=== PATIENT | male | born 1965 | race Caucasian/White ===

== ENCOUNTER 2023-04-18 17:22 | Inpatient (IN) ==
[2023-04-18] MEDS ORDERED: ONDANSETRON 4 MG/2 ML VIAL IV ONE (17:44)
[2023-04-18] MEDS ORDERED: 0.9 % SODIUM CHLORIDE 1,000 ML IV ONE ×2 (17:44→19:54)
[2023-04-18] MEDS ORDERED: morphine 2 MG/ML VIAL IV ONE (17:45)
[2023-04-18 17:56] LABS: POC Calcium, Ionized 1.14 (1.16-1.32); POC Creatinine 0.7 (0.6-1.2); POC Potassium 3.7 (3.3-5.1)
[2023-04-18] MEDS ORDERED: HYDROmorphone 0.5 MG/0.5 ML SYRINGE IV ONE ×3 (18:38→19:54)
[2023-04-18 18:39] LABS: ALT/SGPT 19 U/L (<40); AST/SGOT 19 U/L (<40); Albumin 4.3 gm/dL (3.2-5.2); Albumin/Globulin Ratio 1.3 (1.0-2.3); Alkaline Phosphatase 102 U/L (39-117); Bilirubin,Total 1.3 mg/dL (0.1-1.0); Blood Urea Nitrogen 9 mg/dL (6-20); Calcium 9.6 mg/dL (8.6-10.4); Carbon Dioxide 26 mmol/L (22-30); Chloride 96 mmol/L (96-108); Globulin 3.2 gm/dL (2.2-3.7); Glomerular Filtration Rate 104; Glucose 139 mg/dL (70-105)
[2023-04-18 18:40] LABS: Bilirubin,Direct 0.3 mg/dL (<0.3)
[2023-04-18 18:46] LABS: Basophils # (Auto) 0.03 K/mcL (0.00-0.30); Basophils % (Auto) 0.2 % (0.0-2.0); Eosinophils # (Auto) 0 K/mcL (0.00-0.70); Eosinophils % (Auto) 0 % (0.0-7.0); Hematocrit 43.8 % (40.1-51.0); Lymphocytes # (Auto) 0.71 K/mcL (1.50-4.80); Lymphocytes % (Auto) 4.2 % (15.5-49.0); Mean Cell Volume 96.3 fL (80.0-100.0); Mean Corpuscular HGB Conc 34.2 g/dL (31.0-36.0); Mean Platelet Volume 10.1 fL (8.8-12.5); Monocytes # (Auto) 1.43 K/mcL (0.10-0.90); Monocytes % (Auto) 8.4 % (1.0-12.0); Neutrophils % (Auto) 86.3 % (38.0-78.0); Platelet Count 155 K/mcL (140-440); RBC 4.55 M/mcL (4.63-6.08); Red Cell Distribution Width 12.1 % (11.5-14.5)
[2023-04-18] MEDS ORDERED: PIPERACILLIN SODIUM/TAZOBACTAM 4.5 GM in DEXTROSE 5% IN WATER 50 ML IV ONE (19:48)
[2023-04-18] MEDS ORDERED: ONDANSETRON 4 MG/2 ML VIAL IV PRN (21:58)
[2023-04-18] MEDS ORDERED: PIPERACILLIN SODIUM/TAZOBACTAM 3.375 GM in DEXTROSE 5% IN WATER 50 ML IV SCH (22:00)
[2023-04-18 22:27] LABS: Prothrombin Time 13.2 sec (11.9-14.5)
[2023-04-18 22:35] LABS: Appearance,Urine CLEAR (Clear); Bilirubin,Urine Negative (Negative); Color,Urine YELLOW; Culture Indicated,Urine No; Glucose,Urine (UA) 50 mg/dL (Negative); Ketones,Urine 20 mg/dL (Negative); Leukocyte Esterase,Urine Negative /uL (Negative); Mucus,Urine FEW /hpf; Nitrate,Urine Negative (Negative); Protein,Urine Negative (Negative); Specific Gravity,Urine 1.013 (1.000-1.035); Urine Blood Negative (Negative); Urine RBC 0 /hpf (0-3); Urine Squamous Epithelial Cell 0 /hpf (0-4); Urine WBC 0 /hpf (0-4); Urobilinogen,Urine Negative
[2023-04-18] MEDS: ACETAMINOPHEN 1,000 MG/100 ML BAG IV SCH (23:00)
[2023-04-18] MEDS: HYDROmorphone 1 MG/ML SYRINGE IV PRN (23:00)
[2023-04-18] MEDS: 0.9 % SODIUM CHLORIDE 1,000 ML IV SCH (23:01)
[2023-04-19] MEDS: PIPERACILLIN SODIUM/TAZOBACTAM 3.375 GM in DEXTROSE 5% IN WATER 100 ML IV SCH ×4 (01:02→22:56)
[2023-04-19] MEDS: HYDROmorphone 1 MG/ML SYRINGE IV PRN ×4 (01:26→08:16)
[2023-04-19] MEDS: ACETAMINOPHEN 1,000 MG/100 ML BAG IV SCH ×4 (03:14→21:32)
[2023-04-19] MEDS: 0.9 % SODIUM CHLORIDE 1,000 ML IV SCH ×4 (05:29→23:13)
[2023-04-19 06:34] LABS: ALT/SGPT 75 U/L (<40); AST/SGOT 136 U/L (<40); Albumin 3.7 gm/dL (3.2-5.2); Albumin/Globulin Ratio 1.3 (1.0-2.3); Alkaline Phosphatase 181 U/L (39-117); Bilirubin,Total 3.2 mg/dL (0.1-1.0); Blood Urea Nitrogen 6 mg/dL (6-20); Calcium 8.7 mg/dL (8.6-10.4); Carbon Dioxide 26 mmol/L (22-30); Chloride 97 mmol/L (96-108); Globulin 2.8 gm/dL (2.2-3.7); Glomerular Filtration Rate 111; Glucose 143 mg/dL (70-105); Lactate Dehydrogenase 298 U/L (135-225); Triglycerides 40 mg/dL (<150); Uric Acid 2.4 mg/dL (2.5-8.0)
[2023-04-19 06:43] LABS: Basophils # (Auto) 0.02 K/mcL (0.00-0.30); Basophils % (Auto) 0.1 % (0.0-2.0); Eosinophils # (Auto) 0 K/mcL (0.00-0.70); Eosinophils % (Auto) 0 % (0.0-7.0); Hemoglobin 14.9 g/dL (13.7-17.5); Lymphocytes # (Auto) 0.34 K/mcL (1.50-4.80); Lymphocytes % (Auto) 1.9 % (15.5-49.0); Mean Corpuscular HGB Conc 33.9 g/dL (31.0-36.0); Mean Platelet Volume 10.2 fL (8.8-12.5); Monocytes # (Auto) 2.68 K/mcL (0.10-0.90); Neutrophils % (Auto) 81.9 % (38.0-78.0); Platelet Count 166 K/mcL (140-440); RBC 4.49 M/mcL (4.63-6.08); Red Cell Distribution Width 12.2 % (11.5-14.5); WBC 17.9 K/mcL (4.5-11.0)
[2023-04-19] MEDS ORDERED: KETAMINE 50 MG/ML Syringe IV ONE (08:43)
[2023-04-19] MEDS ORDERED: fentaNYL 100 MCG/2 ML VIAL IV ONE (08:43)
[2023-04-19] MEDS ORDERED: MAGNESIUM SULFATE 2 GM/50 ML BAG IV ONE (08:44)
[2023-04-19] MEDS ORDERED: ONDANSETRON 4 MG/2 ML VIAL ONE (08:44)
[2023-04-19] MEDS ORDERED: PROPOFOL 200 MG/20 ML VIAL IV ONE (08:44)
[2023-04-19] MEDS ORDERED: ROCURONIUM 10 MG/ML ML IV ONE ×2 (08:44→10:19)
[2023-04-19] MEDS ORDERED: SUGAMMADEX SODIUM 200 MG/2 ML VIAL IV ONE (08:44)
[2023-04-19] MEDS ORDERED: DEXAMETHASONE 10 MG/ML VIAL ONE (08:44)
[2023-04-19] MEDS ORDERED: LIDOCAINE 2% PF 5 ML VIAL ONE (08:44)
[2023-04-19] MEDS ORDERED: IPRATROPIUM/ALBUTEROL 3 ML AMPUL.NEB NEB PRN ×2 (09:00→11:10)
[2023-04-19] MEDS ORDERED: SCOPOLAMINE 1 PATCH PATCH TOPICAL PRN (09:00)
[2023-04-19] MEDS ORDERED: IOVERSOL 20 ML VIAL IJ ONE (09:49)
[2023-04-19] MEDS ORDERED: HYDROmorphone 1 MG/ML SYRINGE ONE (10:13)
[2023-04-19] MEDS ORDERED: MEPERIDINE 25 MG/ML VIAL IV PRN (11:10)
[2023-04-19] MEDS ORDERED: LACTATED RINGERS 250 ML IV PRN (11:10)
[2023-04-19] MEDS ORDERED: METHOCARBAMOL 1,000 MG/10 ML VIAL IV PRN (11:10)
[2023-04-19] MEDS ORDERED: NALOXONE HCL 0.4 MG/ML VIAL IV PRN (11:10)
[2023-04-19] MEDS ORDERED: diphenhydrAMINE 50 MG/ML VIAL IV PRN (11:10)
[2023-04-19] MEDS ORDERED: KETOROLAC 30 MG/ML VIAL IV PRN (11:10)
[2023-04-19] MEDS ORDERED: PROMETHAZINE 25 MG/ML VIAL IV PRN (11:10)
[2023-04-19] MEDS ORDERED: ONDANSETRON 4 MG/2 ML VIAL IV PRN (11:10)
[2023-04-19] MEDS ORDERED: fentaNYL 100 MCG/2 ML VIAL IV PRN (11:10)
[2023-04-19] MEDS: amLODIPine 10 MG TABLET PO SCH ×2 (11:11→16:51)
[2023-04-19] MEDS ORDERED: LACTATED RINGERS 1,000 ML IV SCH (11:15)
[2023-04-19] MEDS ORDERED: CARBOXYMETHYLCELLULOSE SODIUM 1 EACH DROPER.GEL OP STA (12:49)
[2023-04-19] MEDS ORDERED: [UNRECOGNIZED DRUG - OTHER] OD ONE (13:49)
[2023-04-20] MEDS: 0.9 % SODIUM CHLORIDE 1,000 ML IV SCH ×4 (03:27→22:17)
[2023-04-20] MEDS: ACETAMINOPHEN 1,000 MG/100 ML BAG IV SCH ×4 (03:32→22:09)
[2023-04-20] MEDS: PIPERACILLIN SODIUM/TAZOBACTAM 3.375 GM in DEXTROSE 5% IN WATER 100 ML IV SCH ×3 (05:25→22:08)
[2023-04-20 07:23] LABS: Basophils # (Auto) 0.02 K/mcL (0.00-0.30); Basophils % (Auto) 0.1 % (0.0-2.0); Eosinophils # (Auto) 0 K/mcL (0.00-0.70); Eosinophils % (Auto) 0 % (0.0-7.0); Hematocrit 32.6 % (40.1-51.0); Hemoglobin 11.6 g/dL (13.7-17.5); Lymphocytes % (Auto) 2.8 % (15.5-49.0); Mean Cell Volume 100.6 fL (80.0-100.0); Mean Corpuscular HGB Conc 35.6 g/dL (31.0-36.0); Mean Platelet Volume 10.1 fL (8.8-12.5); Monocytes # (Auto) 1.53 K/mcL (0.10-0.90); Monocytes % (Auto) 10.6 % (1.0-12.0); Neutrophils % (Auto) 85.9 % (38.0-78.0); Platelet Count 166 K/mcL (140-440); RBC 3.24 M/mcL (4.63-6.08); Red Cell Distribution Width 12.3 % (11.5-14.5); WBC 14.4 K/mcL (4.5-11.0)
[2023-04-20 07:56] LABS: ALT/SGPT 47 U/L (<40); AST/SGOT 35 U/L (<40); Albumin 3.1 gm/dL (3.2-5.2); Albumin/Globulin Ratio 1.3 (1.0-2.3); Alkaline Phosphatase 100 U/L (39-117); Bilirubin,Direct 0.4 mg/dL (<0.3); Blood Urea Nitrogen 9 mg/dL (6-20); Calcium 8.7 mg/dL (8.6-10.4); Carbon Dioxide 26 mmol/L (22-30); Chloride 97 mmol/L (96-108); Globulin 2.4 gm/dL (2.2-3.7); Glomerular Filtration Rate 104; Glucose 124 mg/dL (70-105); Lactate Dehydrogenase 160 U/L (135-225); Phosphorous 2.4 mg/dL (2.5-4.5); Triglycerides 45 mg/dL (<150); Uric Acid 1.8 mg/dL (2.5-8.0)
[2023-04-20] MEDS: amLODIPine 10 MG TABLET PO SCH (08:31)
[2023-04-20] MEDS: levETIRAcetam 500 MG TABLET PO SCH (08:45)
[2023-04-20] MEDS ORDERED: FLUZONE QUAD QS2023-24/PF 60 MCG/0.5 ML SYRINGE IM ONE (10:00)
[2023-04-20] MEDS: SIMETHICONE 80 MG TAB.CHEW CHEWED PRN ×2 (17:36→22:08)
[2023-04-21] MEDS: 0.9 % SODIUM CHLORIDE 1,000 ML IV SCH ×2 (04:18→09:14)
[2023-04-21] MEDS: SIMETHICONE 80 MG TAB.CHEW CHEWED PRN ×2 (04:19→09:12)
[2023-04-21] MEDS: ACETAMINOPHEN 1,000 MG/100 ML BAG IV SCH ×2 (04:19→09:30)
[2023-04-21] MEDS: PIPERACILLIN SODIUM/TAZOBACTAM 3.375 GM in DEXTROSE 5% IN WATER 100 ML IV SCH (05:41)
[2023-04-21 06:27] LABS: Basophils # (Auto) 0.01 K/mcL (0.00-0.30); Basophils % (Auto) 0.1 % (0.0-2.0); Eosinophils # (Auto) 0.01 K/mcL (0.00-0.70); Eosinophils % (Auto) 0.1 % (0.0-7.0); Hematocrit 33.8 % (40.1-51.0); Lymphocytes # (Auto) 0.72 K/mcL (1.50-4.80); Lymphocytes % (Auto) 6.9 % (15.5-49.0); Mean Cell Volume 101.2 fL (80.0-100.0); Mean Corpuscular HGB Conc 35.5 g/dL (31.0-36.0); Mean Platelet Volume 9.6 fL (8.8-12.5); Monocytes # (Auto) 0.88 K/mcL (0.10-0.90); Monocytes % (Auto) 8.4 % (1.0-12.0); Platelet Count 197 K/mcL (140-440); RBC 3.34 M/mcL (4.63-6.08); Red Cell Distribution Width 12.1 % (11.5-14.5); WBC 10.5 K/mcL (4.5-11.0)
[2023-04-21 06:48] LABS: ALT/SGPT 32 U/L (<40); AST/SGOT 21 U/L (<40); Alkaline Phosphatase 91 U/L (39-117); Bilirubin,Direct 0.2 mg/dL (<0.3); Bilirubin,Total 0.7 mg/dL (0.1-1.0); Blood Urea Nitrogen 8 mg/dL (6-20); Calcium 8.5 mg/dL (8.6-10.4); Carbon Dioxide 28 mmol/L (22-30); Chloride 98 mmol/L (96-108); Globulin 2.9 gm/dL (2.2-3.7); Glomerular Filtration Rate 111; Glucose 99 mg/dL (70-105); Lactate Dehydrogenase 159 U/L (135-225); Phosphorous 1.6 mg/dL (2.5-4.5); Triglycerides 97 mg/dL (<150); Uric Acid 2.2 mg/dL (2.5-8.0)
[2023-04-21] MEDS ORDERED: POTASSIUM PHOSPHATE 40 MEQ in DEXTROSE 5% IN WATER 500 ML IV ONE (07:55)
[2023-04-21] MEDS: amLODIPine 10 MG TABLET PO SCH (09:11)
[2023-04-21] MEDS: levETIRAcetam 500 MG TABLET PO SCH (09:11)
== END 2023-04-21 14:45 | disposition home or self-care (01) | DRG 416 ==
LOC: ED 17:22 → INTOOBSV 22:02 → MEDSUR 22:02
PROVIDERS: ADMIT Family Medicine Adult Medicine; ATTEND Family Medicine Adult Medicine

== ENCOUNTER 2023-10-27 13:27 | Inpatient (IN) ==
[2023-10-27] MEDS ORDERED: IOPAMIDOL 100 ML BOTTLE IV ONE (13:28)
[2023-10-27] MEDS: morphine 4 MG/ML VIAL IV ONE (15:05)
[2023-10-27] MEDS: CEFEPIME 2 GM VIAL IV ONE (15:08)
[2023-10-27] MEDS: LACTATED RINGERS 1,000 ML IV ONE ×2 (15:08→17:45)
[2023-10-27 15:40] LABS: Basophils # (Auto) 0.01 K/mcL (0.00-0.30); Basophils % (Auto) 0.1 % (0.0-2.0); Eosinophils # (Auto) 0 K/mcL (0.00-0.70); Eosinophils % (Auto) 0 % (0.0-7.0); Hematocrit 40.9 % (40.1-51.0); Hemoglobin 14.2 g/dL (13.7-17.5); Lymphocytes # (Auto) 0.29 K/mcL (1.50-4.80); Lymphocytes % (Auto) 2.3 % (15.5-49.0); Mean Cell Volume 97.4 fL (80.0-100.0); Mean Corpuscular HGB Conc 34.7 g/dL (31.0-36.0); Mean Platelet Volume 10.7 fL (8.8-12.5); Monocytes # (Auto) 1.31 K/mcL (0.10-0.90); Monocytes % (Auto) 10.3 % (1.0-12.0); Neutrophils % (Auto) 86.4 % (38.0-78.0); Platelet Count 85 K/mcL (140-440); Red Cell Distribution Width 13.1 % (11.5-14.5); WBC 12.7 K/mcL (4.5-11.0)
[2023-10-27] MEDS: VANCOMYCIN 1,000 MG in 0.9 % SODIUM CHLORIDE 250 ML IV ONE (15:40)
[2023-10-27 15:51] LABS: Blood Urea Nitrogen 29 mg/dL (6-20); Calcium 8.4 mg/dL (8.6-10.4); Carbon Dioxide 25 mmol/L (22-30); Chloride 91 mmol/L (96-108); Glomerular Filtration Rate 47; Glucose 127 mg/dL (70-105)
[2023-10-27] MEDS ORDERED: morphine 4 MG/ML VIAL IV PRN (20:38)
[2023-10-27] MEDS ORDERED: SENNOSIDES 1 TABLET PO PRN (20:38)
[2023-10-27] MEDS ORDERED: LORazepam 2 MG/ML VIAL IV PRN (20:38)
[2023-10-27] MEDS ORDERED: ONDANSETRON 4 MG/2 ML VIAL IV PRN (20:38)
[2023-10-27] MEDS ORDERED: POTASSIUM CHLORIDE 40 MEQ in DEXTROSE 5% IN WATER 500 ML IV PRN (20:38)
[2023-10-27] MEDS ORDERED: POTASSIUM CHLORIDE 20 MEQ TABLET PO PRN ×2 (20:38)
[2023-10-27] MEDS ORDERED: MAGNESIUM SULFATE 2 GM/50 ML BAG IV PRN (20:38)
[2023-10-27] MEDS ORDERED: cloNIDine HCL 0.1 MG TABLET PO PRN (20:38)
[2023-10-27] MEDS ORDERED: ACETAMINOPHEN 325 MG TABLET PO PRN (20:38)
[2023-10-27] MEDS ORDERED: chlordiazePOXIDE 25 MG CAPSULE PO PRN (20:38)
[2023-10-27] MEDS ORDERED: VANCOMYCIN PER PHARMACY IV SCH (20:38)
[2023-10-27] MEDS ORDERED: POLYETHYLENE GLYCOL 3350 17 GM PACKET PO PRN (20:38)
[2023-10-27 21:15] LABS: Thyroid Stimulating Hormone 1.81 uIU/mL (0.27-5.01); Uric Acid 7.8 mg/dL (2.5-8.0)
[2023-10-27] MEDS: 0.9 % SODIUM CHLORIDE 1,000 ML IV SCH (21:17)
[2023-10-27] MEDS: THIAMINE 100 MG/ML VIAL ONE (21:20)
[2023-10-27] MEDS: MULTIVIT,THER IRON,CA,FA & MIN 1 TABLET PO SCH (21:20)
[2023-10-27] MEDS: diphenhydrAMINE 25 MG CAPSULE PO SCH (21:20)
[2023-10-27] MEDS: 0.9 % SODIUM CHLORIDE 10 ML SYRINGE IV SCH ×2 (21:20)
[2023-10-27] MEDS: DOCUSATE SODIUM 100 MG CAPSULE PO SCH (21:20)
[2023-10-27] MEDS: FOLIC ACID 1 MG TABLET PO SCH (21:20)
[2023-10-27] MEDS: cefTRIAXone 2 GM in DEXTROSE 5% IN WATER 50 ML IV SCH (21:21)
[2023-10-27] MEDS: cefTRIAXone 2 GM VIAL ONE (21:31)
[2023-10-27] MEDS: HYDROcodone/APAP 5/325MG TABLET PO PRN (21:51)
[2023-10-27] MEDS: THIAMINE 100 MG in 0.9 % SODIUM CHLORIDE 50 ML IV SCH (22:01)
[2023-10-27] MEDS: VANCOMYCIN 500 MG in 0.9 % SODIUM CHLORIDE 100 ML IV ONE (23:09)
[2023-10-28 06:53] LABS: Hematocrit 38.3 % (40.1-51.0); Hemoglobin 13.5 g/dL (13.7-17.5); Mean Corpuscular HGB Conc 35.2 g/dL (31.0-36.0); Mean Platelet Volume 10.5 fL (8.8-12.5); Platelet Count 116 K/mcL (140-440); RBC 3.91 M/mcL (4.63-6.08); Red Cell Distribution Width 13.2 % (11.5-14.5); WBC 14.1 K/mcL (4.5-11.0)
[2023-10-28 07:15] LABS: Band Neutrophils % 2 % (0-10); Eosinophils % (Manual) 2 % (0-7); Lymphocytes % 3 % (15-49); Monocytes % (Manual) 5 % (1-12); Platelet Estimate DECREASED (Normal); RBC Morphology NORMAL (Normal); Reactive Lymphocytes 2 % (0-2); Segmented Neutrophils % 86 % (38-78)
[2023-10-28 08:49] LABS: ALT/SGPT 2660 U/L (<40); AST/SGOT > 7000 U/L (0-40); Albumin 3.2 gm/dL (3.2-5.2); Albumin/Globulin Ratio 1.4 (1.0-2.3); Alkaline Phosphatase 447 U/L (39-117); Bilirubin,Direct 2.9 mg/dL (<0.3); Bilirubin,Total 3.4 mg/dL (0.1-1.0); Blood Urea Nitrogen 37 mg/dL (6-20); Calcium 8.1 mg/dL (8.6-10.4); Carbon Dioxide 22 mmol/L (22-30); Chloride 92 mmol/L (96-108); Globulin 2.3 gm/dL (2.2-3.7); Glomerular Filtration Rate 23; Glucose 93 mg/dL (70-105); Lactate Dehydrogenase 1310 U/L (135-225); Phosphorous 2.3 mg/dL (2.5-4.5); Triglycerides 102 mg/dL (<150); Uric Acid 8.6 mg/dL (2.5-8.0)
[2023-10-28] MEDS: ENOXAPARIN 40 MG/0.4 ML SYRINGE SQ SCH (09:21)
[2023-10-28] MEDS: 0.9 % SODIUM CHLORIDE 1,000 ML IV SCH (09:22)
[2023-10-28] MEDS: levETIRAcetam 500 MG TABLET PO SCH (09:22)
[2023-10-28] MEDS: amLODIPine 10 MG TABLET PO SCH (09:22)
[2023-10-28] MEDS: ATORVASTATIN 40 MG TABLET PO SCH (09:22)
[2023-10-28] MEDS: CLINDAMYCIN IN 0.9 % SOD CHLOR 600 MG/50 ML BAG IV SCH (09:23)
[2023-10-28] MEDS ORDERED: VANCOMYCIN 1,500 MG in 0.9 % SODIUM CHLORIDE 500 ML IV SCH (10:00)
[2023-10-28] MEDS: THIAMINE 100 MG/ML VIAL ONE (10:13)
[2023-10-28 10:36] LABS: Sodium, Urine Random 27 mmol/L
[2023-10-28 11:37] LABS: Osmolality,Urine 315 mOSM/kg (80-1000)
[2023-10-28 12:13] LABS: INR 1.5 (0.9-1.1); Prothrombin Time 18.7 sec (11.9-14.5)
[2023-10-28 16:33] LABS: Hepatitis A Antibody IgM Non-Reactive (Non-Reactive); Hepatitis B Surface Antigen Negative (Negative); Hepatitis C Virus Antibody Non-Reactive (Non-Reactive)
[2023-10-28] MEDS: MELATONIN 3 MG TABLET PO SCH (19:24)
[2023-10-28] MEDS: diphenhydrAMINE 25 MG CAPSULE PO PRN (20:31)
[2023-10-29 02:03] LABS: Amphetamine Screen,Urine None detected; Barbiturate Screen,Urine None detected; Benzodiazepines Screen,Urine None detected; Cannabinoid Screen,Urine None detected; Cocaine Screen,Urine None detected; Opiate Screen,Urine Suspect Positive; Oxycodone, Urine Screen None detected; Phencyclidine Screen,Urine None detected
[2023-10-29] MEDS: oxyCODONE IR 5 MG TABLET PO PRN (05:31)
[2023-10-29 06:45] LABS: Basophils # (Auto) 0.02 K/mcL (0.00-0.30); Basophils % (Auto) 0.1 % (0.0-2.0); Eosinophils # (Auto) 0.05 K/mcL (0.00-0.70); Eosinophils % (Auto) 0.3 % (0.0-7.0); Hematocrit 35.1 % (40.1-51.0); Hemoglobin 12.6 g/dL (13.7-17.5); Lymphocytes # (Auto) 0.41 K/mcL (1.50-4.80); Lymphocytes % (Auto) 2.5 % (15.5-49.0); Mean Cell Volume 96.4 fL (80.0-100.0); Mean Corpuscular HGB Conc 35.9 g/dL (31.0-36.0); Mean Platelet Volume 9.4 fL (8.8-12.5); Monocytes # (Auto) 1.71 K/mcL (0.10-0.90); Monocytes % (Auto) 10.5 % (1.0-12.0); Neutrophils % (Auto) 80.6 % (38.0-78.0); Platelet Count 145 K/mcL (140-440); RBC 3.64 M/mcL (4.63-6.08); Red Cell Distribution Width 13.6 % (11.5-14.5); WBC 16.3 K/mcL (4.5-11.0)
[2023-10-29] MEDS: methylPREDNISolone SOD SUCC 125 MG/2 ML VIAL IV ONE (07:42)
[2023-10-29 08:07] LABS: INR 1.2 (0.9-1.1); Prothrombin Time 16.1 sec (11.9-14.5)
[2023-10-29 08:10] LABS: ALT/SGPT 1584 U/L (<40); AST/SGOT 3330 U/L (<40); Albumin 2.9 gm/dL (3.2-5.2); Albumin/Globulin Ratio 1.2 (1.0-2.3); Alkaline Phosphatase 506 U/L (39-117); Bilirubin,Direct 1.6 mg/dL (<0.3); Bilirubin,Total 1.9 mg/dL (0.1-1.0); Blood Urea Nitrogen 48 mg/dL (6-20); Calcium 7.8 mg/dL (8.6-10.4); Carbon Dioxide 20 mmol/L (22-30); Chloride 90 mmol/L (96-108); Globulin 2.4 gm/dL (2.2-3.7); Glomerular Filtration Rate 13; Glucose 88 mg/dL (70-105); Lactate Dehydrogenase 520 U/L (135-225); Phosphorous 2.9 mg/dL (2.5-4.5); Triglycerides 148 mg/dL (<150); Uric Acid 10.1 mg/dL (2.5-8.0)
[2023-10-29] MEDS: THIAMINE 100 MG/ML VIAL ONE (09:14)
[2023-10-29] MEDS: BACLOFEN 10 MG TABLET PO SCH (09:15)
[2023-10-29] MEDS: 0.9 % SODIUM CHLORIDE 1,000 ML IV ONE (10:30)
[2023-10-29 12:52] LABS: Appearance,Urine CLOUDY (Clear); Bilirubin,Urine Negative (Negative); Color,Urine YELLOW; Culture Indicated,Urine Yes; Glucose,Urine (UA) Negative (Negative); Ketones,Urine 5 mg/dL (Negative); Leukocyte Esterase,Urine Negative /uL (Negative); Nitrate,Urine Negative (Negative); Protein,Urine 100 mg/dL (Negative); Specific Gravity,Urine 1.011 (1.000-1.035); Urine RBC 13 /hpf (0-3); Urine Squamous Epithelial Cell 1 /hpf (0-4); Urine WBC 10 /hpf (0-4); Urobilinogen,Urine Negative
[2023-10-29 13:02] LABS: Creatinine,Urine Random 36.1 mg/dL (39.0-259.0)
[2023-10-29] MEDS: PANTOPRAZOLE 40 MG VIAL IV SCH (17:15)
[2023-10-29] MEDS: metroNIDAZOLE 500 MG/100 ML BAG IV SCH (17:58)
[2023-10-29] MEDS: 0.9 % SODIUM CHLORIDE 1,000 ML IV SCH (20:55)
[2023-10-29] MEDS: IPRATROPIUM/ALBUTEROL 3 ML AMPUL.NEB NEB PRN (21:13)
[2023-10-29] MEDS: ALBUMIN HUMAN 12.5 GM/50 ML VIAL IV ONE (22:44)
[2023-10-29] MEDS: ALBUMIN HUMAN 50 ML IV ONE (23:02)
[2023-10-30] MEDS: LORazepam 2 MG/ML VIAL IV PRN (00:26)
[2023-10-30] MEDS: 0.9 % SODIUM CHLORIDE 1,000 ML IV SCH ×2 (03:55→09:16)
[2023-10-30] MEDS: ALBUMIN HUMAN 12.5 GM/50 ML VIAL IV ONE (05:13)
[2023-10-30] MEDS: ALBUMIN HUMAN 50 ML IV ONE (05:19)
[2023-10-30 06:22] LABS: Basophils # (Auto) 0.01 K/mcL (0.00-0.30); Basophils % (Auto) 0.1 % (0.0-2.0); Eosinophils # (Auto) 0 K/mcL (0.00-0.70); Eosinophils % (Auto) 0 % (0.0-7.0); Hematocrit 33.5 % (40.1-51.0); Hemoglobin 11.9 g/dL (13.7-17.5); Lymphocytes # (Auto) 0.39 K/mcL (1.50-4.80); Lymphocytes % (Auto) 2.5 % (15.5-49.0); Mean Cell Volume 93.8 fL (80.0-100.0); Mean Corpuscular HGB Conc 35.5 g/dL (31.0-36.0); Mean Platelet Volume 9.4 fL (8.8-12.5); Monocytes # (Auto) 1.11 K/mcL (0.10-0.90); Monocytes % (Auto) 7.1 % (1.0-12.0); Platelet Count 155 K/mcL (140-440); RBC 3.57 M/mcL (4.63-6.08); Red Cell Distribution Width 13.4 % (11.5-14.5); WBC 15.5 K/mcL (4.5-11.0)
[2023-10-30 07:58] LABS: ALT/SGPT 1110 U/L (<40); AST/SGOT 1280 U/L (<40); Albumin 3.1 gm/dL (3.2-5.2); Albumin/Globulin Ratio 1.2 (1.0-2.3); Alkaline Phosphatase 488 U/L (39-117); Bilirubin,Direct 0.8 mg/dL (<0.3); Bilirubin,Total 1.1 mg/dL (0.1-1.0); Blood Urea Nitrogen 54 mg/dL (6-20); Calcium 7.5 mg/dL (8.6-10.4); Carbon Dioxide 21 mmol/L (22-30); Chloride 89 mmol/L (96-108); Globulin 2.5 gm/dL (2.2-3.7); Glomerular Filtration Rate 10; Glucose 121 mg/dL (70-105); Lactate Dehydrogenase 453 U/L (135-225); Phosphorous 4.6 mg/dL (2.5-4.5); Triglycerides 98 mg/dL (<150); Uric Acid 10.8 mg/dL (2.5-8.0)
[2023-10-30] MEDS ORDERED: ENOXAPARIN 30 MG/0.3 ML SYRINGE SQ SCH (09:00)
[2023-10-30] MEDS: THIAMINE 100 MG TABLET PO SCH (09:09)
[2023-10-30] MEDS: SIMETHICONE 80 MG TAB.CHEW CHEWED SCH (09:19)
[2023-10-31 07:07] LABS: Basophils # (Auto) 0.02 K/mcL (0.00-0.30); Basophils % (Auto) 0.1 % (0.0-2.0); Eosinophils # (Auto) 0.04 K/mcL (0.00-0.70); Eosinophils % (Auto) 0.3 % (0.0-7.0); Hematocrit 37.4 % (40.1-51.0); Hemoglobin 13.5 g/dL (13.7-17.5); Lymphocytes # (Auto) 0.65 K/mcL (1.50-4.80); Lymphocytes % (Auto) 4.6 % (15.5-49.0); Mean Cell Volume 94.4 fL (80.0-100.0); Mean Corpuscular HGB Conc 36.1 g/dL (31.0-36.0); Mean Platelet Volume 9.4 fL (8.8-12.5); Monocytes % (Auto) 14.3 % (1.0-12.0); Neutrophils % (Auto) 79.4 % (38.0-78.0); Platelet Count 222 K/mcL (140-440); RBC 3.96 M/mcL (4.63-6.08); Red Cell Distribution Width 13.9 % (11.5-14.5)
[2023-10-31 07:23] LABS: C-Reactive Protein 9.13 mg/dL (0.03-0.80)
[2023-10-31 07:41] LABS: ALT/SGPT 817 U/L (<40); AST/SGOT 542 U/L (<40); Albumin 3.2 gm/dL (3.2-5.2); Albumin/Globulin Ratio 1.2 (1.0-2.3); Alkaline Phosphatase 462 U/L (39-117); Bilirubin,Direct 0.5 mg/dL (<0.3); Bilirubin,Total 0.7 mg/dL (0.1-1.0); Blood Urea Nitrogen 62 mg/dL (6-20); Calcium 8.1 mg/dL (8.6-10.4); Carbon Dioxide 20 mmol/L (22-30); Chloride 92 mmol/L (96-108); Globulin 2.6 gm/dL (2.2-3.7); Glomerular Filtration Rate 8; Glucose 84 mg/dL (70-105); Lactate Dehydrogenase 440 U/L (135-225); Phosphorous 5.5 mg/dL (2.5-4.5); Triglycerides 147 mg/dL (<150); Uric Acid 11.6 mg/dL (2.5-8.0)
[2023-10-31] MEDS: 0.9 % SODIUM CHLORIDE 1,000 ML IV SCH (09:45)
[2023-10-31] MEDS: SIMETHICONE 80 MG TAB.CHEW CHEWED SCH (09:45)
[2023-10-31 11:33] LABS: Appearance,Urine SL CLOUDY (Clear); Bilirubin,Urine NEGATIVE (Negative); Color,Urine LT. YELLOW; Culture Indicated,Urine No; Glucose,Urine (UA) NEGATIVE (Negative); Ketones,Urine NEGATIVE (Negative); Leukocyte Esterase,Urine NEGATIVE /uL (Negative); Mucus,Urine FEW /hpf; Nitrate,Urine NEGATIVE (Negative); Protein,Urine 30 mg/dL (Negative); Specific Gravity,Urine <= 1.005 (1.000-1.035); Urine Amorphous Crystals FEW /hpf; Urine Blood LARGE ery/mcL (Negative); Urine Granular Cast 1 /lph (0-0); Urine RBC 81 /hpf (0-3); Urine Squamous Epithelial Cell < 1 /hpf (0-4); Urine WBC 9 /hpf (0-4); Urobilinogen,Urine Normal
[2023-10-31 12:10] LABS: Uric Acid,Urine Random 15.5 mg/dL (37.0-92.0)
[2023-11-01 06:43] LABS: Basophils # (Auto) 0.02 K/mcL (0.00-0.30); Basophils % (Auto) 0.2 % (0.0-2.0); Eosinophils # (Auto) 0.18 K/mcL (0.00-0.70); Eosinophils % (Auto) 1.5 % (0.0-7.0); Hematocrit 38.3 % (40.1-51.0); Hemoglobin 13.9 g/dL (13.7-17.5); Lymphocytes # (Auto) 0.58 K/mcL (1.50-4.80); Lymphocytes % (Auto) 4.9 % (15.5-49.0); Mean Cell Volume 96.2 fL (80.0-100.0); Mean Corpuscular HGB Conc 36.3 g/dL (31.0-36.0); Mean Platelet Volume 9.1 fL (8.8-12.5); Monocytes # (Auto) 1.69 K/mcL (0.10-0.90); Monocytes % (Auto) 14.4 % (1.0-12.0); Neutrophils % (Auto) 76.6 % (38.0-78.0); Platelet Count 223 K/mcL (140-440); RBC 3.98 M/mcL (4.63-6.08); Red Cell Distribution Width 14.2 % (11.5-14.5); WBC 11.7 K/mcL (4.5-11.0)
[2023-11-01 07:45] LABS: ALT/SGPT 571 U/L (<40); AST/SGOT 240 U/L (<40); Albumin 2.9 gm/dL (3.2-5.2); Alkaline Phosphatase 398 U/L (39-117); Bilirubin,Direct 0.4 mg/dL (<0.3); Bilirubin,Total 0.6 mg/dL (0.1-1.0); Blood Urea Nitrogen 64 mg/dL (6-20); Calcium 7.8 mg/dL (8.6-10.4); Carbon Dioxide 17 mmol/L (22-30); Chloride 96 mmol/L (96-108); Globulin 2.8 gm/dL (2.2-3.7); Glomerular Filtration Rate 8; Glucose 100 mg/dL (70-105); Lactate Dehydrogenase 413 U/L (135-225); Phosphorous 5.9 mg/dL (2.5-4.5); Triglycerides 170 mg/dL (<150); Uric Acid 11.3 mg/dL (2.5-8.0)
[2023-11-01 12:05] LABS: Specimen Source WHOLE BLOOD
[2023-11-02 06:34] LABS: Basophils # (Auto) 0.01 K/mcL (0.00-0.30); Basophils % (Auto) 0.1 % (0.0-2.0); Eosinophils # (Auto) 0.21 K/mcL (0.00-0.70); Eosinophils % (Auto) 2.1 % (0.0-7.0); Hematocrit 38.8 % (40.1-51.0); Hemoglobin 14.2 g/dL (13.7-17.5); Lymphocytes # (Auto) 0.52 K/mcL (1.50-4.80); Lymphocytes % (Auto) 5.1 % (15.5-49.0); Mean Cell Volume 94.6 fL (80.0-100.0); Mean Corpuscular HGB Conc 36.6 g/dL (31.0-36.0); Mean Platelet Volume 9.3 fL (8.8-12.5); Monocytes # (Auto) 1.26 K/mcL (0.10-0.90); Monocytes % (Auto) 12.4 % (1.0-12.0); Neutrophils % (Auto) 76.2 % (38.0-78.0); Platelet Count 209 K/mcL (140-440); Red Cell Distribution Width 14.4 % (11.5-14.5); WBC 10.1 K/mcL (4.5-11.0)
[2023-11-02 07:04] LABS: ALT/SGPT 436 U/L (<40); AST/SGOT 154 U/L (<40); Albumin 2.9 gm/dL (3.2-5.2); Alkaline Phosphatase 333 U/L (39-117); Bilirubin,Total 0.6 mg/dL (0.1-1.0); Blood Urea Nitrogen 61 mg/dL (6-20); Calcium 7.9 mg/dL (8.6-10.4); Carbon Dioxide 16 mmol/L (22-30); Chloride 100 mmol/L (96-108); Globulin 2.8 gm/dL (2.2-3.7); Glomerular Filtration Rate 8; Glucose 101 mg/dL (70-105)
[2023-11-02] MEDS: CITRIC ACID/SODIUM CITRATE 15 ML ORAL.SOL PO SCH (12:43)
[2023-11-03 06:30] LABS: Basophils # (Auto) 0.02 K/mcL (0.00-0.30); Basophils % (Auto) 0.2 % (0.0-2.0); Eosinophils # (Auto) 0.27 K/mcL (0.00-0.70); Eosinophils % (Auto) 2.8 % (0.0-7.0); Hematocrit 36.7 % (40.1-51.0); Hemoglobin 13.1 g/dL (13.7-17.5); Lymphocytes # (Auto) 0.54 K/mcL (1.50-4.80); Lymphocytes % (Auto) 5.5 % (15.5-49.0); Mean Cell Volume 95.8 fL (80.0-100.0); Mean Corpuscular HGB Conc 35.7 g/dL (31.0-36.0); Mean Platelet Volume 9.6 fL (8.8-12.5); Monocytes # (Auto) 1.41 K/mcL (0.10-0.90); Monocytes % (Auto) 14.4 % (1.0-12.0); Neutrophils % (Auto) 72.4 % (38.0-78.0); Platelet Count 210 K/mcL (140-440); RBC 3.83 M/mcL (4.63-6.08); Red Cell Distribution Width 14.6 % (11.5-14.5); WBC 9.8 K/mcL (4.5-11.0)
[2023-11-03 06:56] LABS: ALT/SGPT 335 U/L (<40); AST/SGOT 105 U/L (<40); Albumin 2.8 gm/dL (3.2-5.2); Alkaline Phosphatase 268 U/L (39-117); Bilirubin,Total 0.5 mg/dL (0.1-1.0); Blood Urea Nitrogen 56 mg/dL (6-20); Calcium 7.9 mg/dL (8.6-10.4); Carbon Dioxide 17 mmol/L (22-30); Chloride 103 mmol/L (96-108); Globulin 2.8 gm/dL (2.2-3.7); Glomerular Filtration Rate 8; Glucose 103 mg/dL (70-105)
[2023-11-03] MEDS: POTASSIUM CHLORIDE 20 MEQ TABLET PO ONE (07:49)
[2023-11-03] MEDS: ALLOPURINOL 100 MG TABLET PO SCH (08:52)
[2023-11-03] MEDS: SIMETHICONE 80 MG TAB.CHEW CHEWED PRN (20:56)
[2023-11-04 02:08] LABS: Opiate Screen Positive ng/mL (Cutoff=300)
[2023-11-04 06:55] LABS: Basophils # (Auto) 0.03 K/mcL (0.00-0.30); Basophils % (Auto) 0.3 % (0.0-2.0); Eosinophils # (Auto) 0.32 K/mcL (0.00-0.70); Eosinophils % (Auto) 3.1 % (0.0-7.0); Hematocrit 37.3 % (40.1-51.0); Hemoglobin 13.3 g/dL (13.7-17.5); Lymphocytes % (Auto) 5.9 % (15.5-49.0); Mean Cell Volume 96.9 fL (80.0-100.0); Mean Corpuscular HGB Conc 35.7 g/dL (31.0-36.0); Mean Platelet Volume 9.6 fL (8.8-12.5); Monocytes # (Auto) 1.39 K/mcL (0.10-0.90); Monocytes % (Auto) 13.6 % (1.0-12.0); Neutrophils % (Auto) 73.6 % (38.0-78.0); Platelet Count 248 K/mcL (140-440); RBC 3.85 M/mcL (4.63-6.08); WBC 10.2 K/mcL (4.5-11.0)
[2023-11-04 07:20] LABS: Phosphorous 5.6 mg/dL (2.5-4.5)
[2023-11-04 07:36] LABS: ALT/SGPT 282 U/L (<40); AST/SGOT 70 U/L (<40); Albumin 2.9 gm/dL (3.2-5.2); Alkaline Phosphatase 238 U/L (39-117); Bilirubin,Total 0.6 mg/dL (0.1-1.0); Blood Urea Nitrogen 50 mg/dL (6-20); Calcium 8.1 mg/dL (8.6-10.4); Carbon Dioxide 17 mmol/L (22-30); Chloride 105 mmol/L (96-108); Glomerular Filtration Rate 8; Glucose 109 mg/dL (70-105)
[2023-11-04] MEDS: POLYETHYLENE GLYCOL 3350 17 GM PACKET PO SCH (09:12)
[2023-11-04] MEDS: POTASSIUM CHLORIDE 20 MEQ PACKET PO SCH (09:19)
[2023-11-05 06:07] LABS: C3, Serum 40 mg/dL (82-185); C4, Serum 4 mg/dL (15-53)
[2023-11-05 07:38] LABS: Basophils # (Auto) 0.05 K/mcL (0.00-0.30); Basophils % (Auto) 0.6 % (0.0-2.0); Eosinophils % (Auto) 3.3 % (0.0-7.0); Hematocrit 36.7 % (40.1-51.0); Hemoglobin 13.1 g/dL (13.7-17.5); Lymphocytes # (Auto) 0.57 K/mcL (1.50-4.80); Lymphocytes % (Auto) 6.3 % (15.5-49.0); Mean Cell Volume 99.5 fL (80.0-100.0); Mean Corpuscular HGB Conc 35.7 g/dL (31.0-36.0); Mean Platelet Volume 9.5 fL (8.8-12.5); Monocytes # (Auto) 1.19 K/mcL (0.10-0.90); Monocytes % (Auto) 13.1 % (1.0-12.0); Neutrophils % (Auto) 74.1 % (38.0-78.0); Platelet Count 261 K/mcL (140-440); RBC 3.69 M/mcL (4.63-6.08); Red Cell Distribution Width 15.1 % (11.5-14.5); WBC 9.1 K/mcL (4.5-11.0)
[2023-11-05 08:07] LABS: ALT/SGPT 233 U/L (<40); AST/SGOT 59 U/L (<40); Albumin 3.1 gm/dL (3.2-5.2); Albumin/Globulin Ratio 1.1 (1.0-2.3); Alkaline Phosphatase 205 U/L (39-117); Bilirubin,Total 0.6 mg/dL (0.1-1.0); Blood Urea Nitrogen 48 mg/dL (6-20); Calcium 8.2 mg/dL (8.6-10.4); Carbon Dioxide 19 mmol/L (22-30); Chloride 106 mmol/L (96-108); Globulin 2.8 gm/dL (2.2-3.7); Glomerular Filtration Rate 8; Glucose 106 mg/dL (70-105)
[2023-11-05] MEDS: cefTRIAXone 2 GM VIAL ONE (08:17)
[2023-11-05] MEDS: metroNIDAZOLE 500 MG TABLET PO ONE (09:51)
[2023-11-05] MEDS: metroNIDAZOLE 500 MG TABLET PO SCH (14:29)
[2023-11-06 06:18] LABS: Basophils # (Auto) 0.07 K/mcL (0.00-0.30); Basophils % (Auto) 0.8 % (0.0-2.0); Eosinophils # (Auto) 0.26 K/mcL (0.00-0.70); Hematocrit 39.1 % (40.1-51.0); Hemoglobin 13.3 g/dL (13.7-17.5); Lymphocytes % (Auto) 8.2 % (15.5-49.0); Mean Cell Volume 97.5 fL (80.0-100.0); Mean Platelet Volume 9.5 fL (8.8-12.5); Monocytes # (Auto) 1.05 K/mcL (0.10-0.90); Monocytes % (Auto) 12.3 % (1.0-12.0); Neutrophils % (Auto) 73.9 % (38.0-78.0); Platelet Count 276 K/mcL (140-440); RBC 4.01 M/mcL (4.63-6.08); WBC 8.5 K/mcL (4.5-11.0)
[2023-11-06 06:51] LABS: ALT/SGPT 193 U/L (<40); AST/SGOT 50 U/L (<40); Alkaline Phosphatase 187 U/L (39-117); Bilirubin,Total 0.6 mg/dL (0.1-1.0); Blood Urea Nitrogen 44 mg/dL (6-20); Calcium 8.4 mg/dL (8.6-10.4); Carbon Dioxide 20 mmol/L (22-30); Chloride 106 mmol/L (96-108); Glomerular Filtration Rate 9; Glucose 98 mg/dL (70-105)
[2023-11-06] MEDS: CEFDINIR 300 MG CAPSULE PO SCH (09:12)
== END 2023-11-06 11:10 | disposition home or self-care (01) | DRG 871 ==
LOC: ED 13:27 → MEDSUR 20:24
PROVIDERS: ADMIT Internal Medicine; ATTEND Student in an Organized Health Care Education/Training Program